=== PATIENT | female | born 2000 | race Caucasian/White ===

== ENCOUNTER 2020-02-18 01:29 | Emergency (ER) | payer OTHER ==
[~2020-02-18] VITALS: Ht 157.5 cm; Wt 104.3 kg
[2020-02-18 02:19] LABS: ABSOLUTE NEUTROPHILS 9.3 thou/uL (1.4-8.2); BASOPHILS 0.8 % (0.0-2.0); EOSINOPHILS 2.6 % (0.0-3.0); HEMATOCRIT 44.9 % (37.0-47.0); HEMOGLOBIN 15.2 gm/dL (12.0-15.0); LYMPHOCYTES 34.2 % (24.0-44.0); MCH 28.8 pg (26.0-34.0); MCHC 33.9 g/dL (28.0-37.0); MONOCYTES 5.7 % (1.0-8.0); PLATELET COUNT 431 thou/uL (150-400); POLYS 56.7 % (36.0-66.0); RBC 5.28 mil/uL (4.20-5.00); RDW 13.2 % (10.5-14.5); WBC 16.3 thou/uL (4.0-11.0)
[2020-02-18 02:44] LABS: ANION GAP 16 mmol/L (7-16); BUN 9 mg/dL (7-18); CALCIUM 8.9 mg/dL (8.5-10.1); CHLORIDE 103 mmol/L (98-107); CO2 21 mmol/L (21-32); CREATININE 1.2 mg/dL (0.6-1.0); GLUCOSE 118 mg/dL (74-106); POTASSIUM 3.2 mmol/L (3.5-5.1); SODIUM 140 mmol/L (136-145)
[2020-02-18 02:48] LABS: URINE BILIRUBIN NEGATIVE (Negative); URINE BLOOD NEGATIVE (Negative); URINE CLARITY CLEAR; URINE COLOR YELLOW; URINE GLUCOSE-RANDOM* NEGATIVE (Negative); URINE KETONES NEGATIVE (Negative); URINE LEUKOCYTES-REFLEX NEGATIVE (Negative); URINE NITRITE-REFLEX NEGATIVE (Negative); URINE PROTEIN (DIPSTICK) NEGATIVE (Negative); URINE UROBILINOGEN 0.2 E.U./dl (0.2-1.0)
[2020-02-18 02:52] LABS: ALBUMIN 4.1 g/dL (3.4-5.0); LIPASE 84 U/L (73-393); SGOT 56 U/L (15-37); SGPT 119 U/L (30-65); TOTAL BILIRUBIN 0.3 mg/dL (0.2-1.0); TOTAL PROTEIN 8.2 g/dL (6.4-8.2)
[2020-02-18 03:02] LABS: AMP/METHAMP Negative (Negative); BARBITURATES Negative (Negative); BENZODIAZEPINES Negative (Negative); COCAINE Negative (Negative); METHADONE Negative (Negative); OPIATES Negative (Negative); PCP Negative (Negative)
[2020-02-18 03:19] LABS: SALICYLATE < 2.8 mg/dL (2.8-20.0)
--- NOTE | 2020-02-18 09:37 | EKG ---
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: : 2000 Requested By: Emmanuel Reaves Order Number: [id number] MD: Ronak Nicolas Measurements Intervals [place] Rate: 116 P: 40 [place]: 163 QRS: -23 QRSD: 105 T: 37 QT: 318 QTc: 442 Interpretive Statements Sinus tachycardia Incomplete RBBB and LAFB RSR' in V1 or V2, right VCD No previous ECG available for comparison Electronically Signed On 02-18-2020 9:37:33 CDT by Ronak Nicolas [email or web address] <ELECTRONICALLY SIGNED> By: Ronak Nicolas MD, [facility] 02/18/20 0937 [id number] Ronak Nicolas MD, [facility] /EPI
--- NOTE | 2020-02-18 09:38 | EKG ---
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 : 2000 Requested By: Emmanuel Reaves Order Number: [id number] MD: Ronak Nicolas Measurements Intervals [place] Rate: 105 P: 41 [place]: 165 QRS: -13 QRSD: 105 T: 20 QT: 335 QTc: 443 Interpretive Statements Sinus tachycardia RSR' in V1 or V2, right VCD Compared to ECG 02/18/2020 01:45:40 No significant change was found Electronically Signed On 02-18-2020 9:38:02 CDT by Ronak Nicolas [email or web address] <ELECTRONICALLY SIGNED> By: Ronak Nicolas MD, [facility] 02/18/20 0938 0 0 Ronak Nicolas MD, [facility] /EPI
[2020-02-18 15:52] VITALS: BP 119/69
== END 2020-02-18 17:00 | disposition short-term general hospital (02) ==
LOC: ER 01:29
PROVIDERS: Emergency Medicine
DX: T43.222A Poisoning by selective serotonin reuptake inhibitors, intentional self-harm, initial encounter (principal); Z20.828 Contact with and (suspected) exposure to other viral communicable diseases; Z88.1 Allergy status to other antibiotic agents; Y92.89 Other specified places as the place of occurrence of the external cause